=== PATIENT | female | born 1990 | race Caucasian/White ===

== ENCOUNTER 2017-04-02 10:57 | Emergency (ER) | payer BC ==
--- NOTE | 2017-04-02 17:07 | CT ---
PRELIMINARY REPORT/[facility]/EMERGENCY AFTER HOURS PROCEDURE: EXAM: CT Head Without Intravenous Contrast CLINICAL HISTORY: 26 years old, female; Injury or trauma; Fall; Initial encounter; Concussion / head injury; Injury de tails: Patient slipped and fell last night. Hit her head. Denies loc. TECHNIQUE: Axial computed tomography images of the head/brain without intravenous contrast. This CT exam was performed using one or more of the following dose reduction techniques: automated exposure control, adjustment of the mA and/or kV according to patient size, and/or use of iterative reconstruction technique. EXAM DATE/TIME: 04/02/2017 11:24 AM COMPARISON: No relevant prior studies available. FINDINGS: Brain: Unremarkable. No hemorrhage. No significant white matter disease. No edema. Ventricles: Unremarkable. No ventriculomegaly. Bones/joints: Unremarkable. No acute fracture. Soft tissues: Unremarkable. Sinuses: Unremarkable as visualized. No acute sinusitis. Mastoid air cells: Unremarkable as visualized. No mastoid effusion. IMPRESSION: No acute intracranial changes. Thank you for allowing us to participate in the care of your patient. Dictated and Authenticated by: Abisai Mercedes MD 04/02/2017 12:25 PM Central Time ([place] \T\ [place]) FINAL REPORT CT OF THE BRAIN WITHOUT CONTRAST 04/02/2017 A non-contrast CT shows normal size ventricles with no shift. No intracranial bleeding, mass, or si gn of acute stroke was found. The calvarium appears intact, and the sphenoid sinus and mastoid air cells are clear. IMPRESSION: No acute intracranial findings. Report in agreement with the preliminary reading by Manisha. POS: HOME
== END 2017-04-02 12:06 | disposition home or self-care (01) ==
LOC: BURERS 10:57
DX: S06.0X0A Concussion without loss of consciousness, initial encounter (principal); S00.03XA Contusion of scalp, initial encounter; W01.10XA Fall on same level from slipping, tripping and stumbling with subsequent striking against unspecified object, initial encounter
CPT/HCPCS: 70450

== ENCOUNTER 2018-10-05 19:06 | Emergency (ER) | payer BC, SELFPAY ==
[2018-10-05] MEDS ORDERED: Diazepam 5 MG TAB ONE (19:33)
[2018-10-05] MEDS ORDERED: Ibuprofen 200 MG TAB ONE (19:33)
== END 2018-10-05 19:35 | disposition home or self-care (01) ==
LOC: BURERS 19:06
DX: S13.9XXA Sprain of joints and ligaments of unspecified parts of neck, initial encounter (principal); X50.9XXA Other and unspecified overexertion or strenuous movements or postures, initial encounter
CPT/HCPCS: 99283

== ENCOUNTER 2020-05-16 19:39 | Emergency (ER) | payer BC, SELFPAY ==
--- NOTE | 2020-05-16 20:48 | RAD ---
EXAM: 2 views of the neck soft tissue HISTORY: Foreign body ingestion COMPARISON: None FINDINGS: There is no evidence of radio opaque foreign body. No prevertebral soft tissue swelling is seen. Th e bones are unremarkable. IMPRESSION: Unremarkable exam
== END 2020-05-16 21:15 | disposition home or self-care (01) ==
LOC: BURERS 19:39
DX: R09.89 Other specified symptoms and signs involving the circulatory and respiratory systems (principal)
CPT/HCPCS: 70360